=== PATIENT | female | born 1995 | race African-American/Black ===

== ENCOUNTER 2024-06-10 06:10 | Emergency (ER) | payer OTHER ==
[~2024-06-10] VITALS: Ht 162.6 cm; Wt 59.1 kg
[2024-06-10 06:18] VITALS: TEMP 103.4
[2024-06-10] MEDS: IBUPROFEN 600 MG TABLET PO ONE (06:39)
[2024-06-10 06:43] LABS: BASOPHILS % (AUTO) 0.5 % (0.0-2.0); EOSINOPHILS % (AUTO) 0.8 % (1.0-6.0); HEMATOCRIT 35.7 % (36-46); HEMOGLOBIN 11.9 g/dL (12.0-16.0); LYMPHOCYTES # (AUTO) 0.3 K/uL (1.0-4.8); LYMPHOCYTES % (AUTO) 4.6 % (22.0-44.0); MEAN CORPUSCULAR HEMOGLOBIN 29.5 pg (26.0-34.0); MEAN CORPUSCULAR HGB CONC 33.2 G/dL (31.0-37.0); MEAN CORPUSCULAR VOLUME 89 fL (80-100); MONOCYTES # (AUTO) 0.7 K/uL (0.1-1.0); NEUTROPHILS # (AUTO) 6.2 K/uL (1.8-7.7); NEUTROPHILS % (AUTO) 84.1 % (40.0-70.0); PLATELET COUNT (AUTO) 299 K/uL (150-450); RED BLOOD CELL COUNT(AUTO) 4.03 MIL/uL (4.00-5.20); RED CELL DISTRIBUTION WIDTH 16.6 % (11.5-14.5); WHITE BLOOD COUNT (AUTO) 7.4 K/uL (4.5-11.0)
[2024-06-10] MEDS: SODIUM CHLORIDE 0.9% 500 ML IV ONE (06:47)
[2024-06-10 06:48] LABS: COVID AG,FIA SOURCE NASAL SWAB
[2024-06-10 06:52] LABS: ANION GAP 8 mmol/L (8-16); CALCIUM, TOTAL 8.3 mg/dL (8.8-10.5); CARBON DIOXIDE 27 mmol/L (22-29); CHLORIDE 100 mmol/L (98-107); GLOMERULAR FILTR. RATE CALC > 60 mL/min (>60); GLUCOSE,RANDOM 107 mg/dL (70-110); POTASSIUM 3.5 mmol/L (3.5-5.1); SODIUM SERUM 135 mmol/L (136-145); UREA NITROGEN, BLOOD 7 mg/dL (7-18)
[2024-06-10 07:12] LABS: SARS-COV2 (COVID) ANTIGEN,FIA Negative (Negative)
[2024-06-10 07:15] LABS: INFLUENZA TYPE A POSITIVE FOR TYPE A (NEGATIVE)
[2024-06-10 07:16] LABS: INFLUENZA TYPE B NEGATIVE FOR TYPE B (NEGATIVE)
[2024-06-10] MEDS ORDERED: OSEL75CA45 PO (07:55)
[2024-06-10] MEDS: ACETAMINOPHEN 500 MG TABLET PO ONE (08:00)
[2024-06-10 08:30] VITALS: BP 126/81; PULSE 110; RESP 17; O2SAT 97
== END 2024-06-10 08:47 | disposition home or self-care (01) ==
LOC: EMS 06:13
DX: J11.1 Influenza due to unidentified influenza virus with other respiratory manifestations (principal); Z20.822 Contact with and (suspected) exposure to COVID-19
CPT/HCPCS: 99284; 96360; 71045; 87426; 80048; 85025; 87804; 36415; J7040

== ENCOUNTER 2024-10-31 11:04 | Emergency (ER) | payer OTHER ==
[~2024-10-31] VITALS: Ht 160 cm; Wt 63.6 kg
[~2024-10-31 11:04] MED LIST: OSEL75CA45 PO
[2024-10-31 11:12] VITALS: BP 120/71; PULSE 68; RESP 16; TEMP 97.9; O2SAT 96
== END 2024-10-31 12:38 | disposition home or self-care (01) ==
LOC: EMS 11:04
DX: Z34.91 Encounter for supervision of normal pregnancy, unspecified, first trimester (principal); Z3A.01 Less than 8 weeks gestation of pregnancy
CPT/HCPCS: 84702; 99283

== ENCOUNTER 2025-01-05 12:54 | Emergency (ER) | payer OTHER ==
[~2025-01-05] VITALS: Ht 160 cm; Wt 68.6 kg
[2025-01-05 12:57] VITALS: BP 124/74; PULSE 70; RESP 18; TEMP 97.9; O2SAT 100
[2025-01-05] MEDS ORDERED: PREN-134 PO (13:01)
[2025-01-05] MEDS: SODIUM CHLORIDE 0.9% 1,000 ML IV ONE (14:05)
[2025-01-05 14:19] LABS: PLATELET COUNT (AUTO) 337 K/uL (150-450); RED BLOOD CELL COUNT(AUTO) 4.07 MIL/uL (4.00-5.20); RED CELL DISTRIBUTION WIDTH 14.8 % (11.5-14.5); WHITE BLOOD COUNT (AUTO) 10.7 K/uL (4.5-11.0)
[2025-01-05 14:22] LABS: CALCIUM, TOTAL 9.3 mg/dL (8.8-10.5); CREATININE 0.57 mg/dL (0.60-1.30); GLOMERULAR FILTR. RATE CALC > 60 mL/min (>60); GLUCOSE,RANDOM 80 mg/dL (70-110); SODIUM SERUM 135 mmol/L (136-145); UREA NITROGEN, BLOOD 8 mg/dL (7-18)
[2025-01-05 15:01] LABS: APPEARANCE,URINE CLEAR (CLEAR); GLUCOSE, URINE (UA) NEGATIVE (NEGATIVE); LEUKOCYTE ESTERASE ,URINE NEGATIVE (NEGATIVE); NITRATE,URINE NEGATIVE (NEGATIVE); OCCULT BLOOD,URINE NEGATIVE (NEGATIVE); SPECIFIC GRAVITIY, URINE 1.005 (1.003-1.030)
[2025-01-05 15:22] LABS: SQUAMOUS EPITHELIAL CELL,UR Few /LPF (None Seen)
== END 2025-01-05 15:38 | disposition home or self-care (01) ==
LOC: EMS 12:54
DX: O34.32 Maternal care for cervical incompetence, second trimester (principal); N89.8 Other specified noninflammatory disorders of vagina; Z79.899 Other long term (current) drug therapy; Z3A.16 16 weeks gestation of pregnancy
CPT/HCPCS: 99284; 96360; 76805; 96361; 80048; 81001; 84702; 85025; 87086; 36415; J7030